=== PATIENT | female | born 2000 | race Caucasian/White ===

== ENCOUNTER 2019-04-20 23:44 | Emergency (ER) | payer OTHER ==
[~2019-04-20] VITALS: Ht 165.1 cm; Wt 139.7 kg
[~2019-04-20 23:44] MED LIST: CYCL10TA7 PO; NAPR-985 PO
[2019-04-20 23:47] VITALS: BP 141/102; PULSE 100; RESP 17; Ht 165.1 cm; Wt 139.7 kg
[2019-04-21] MEDS ORDERED: KETOROLAC 30 MG INJ IM STA (00:12)
[2019-04-21] MEDS ORDERED: DEXAMETHASONE 10 MG/ML 1 ML INJ IM ONE (00:30)
[2019-04-21] MEDS ORDERED: ONDANSETRON (ODT) 4 MG TAB ODT STA (01:33)
[2019-04-21] MEDS ORDERED: HYDROCODONE/APAP (10/325) TAB PO ONE (02:00)
--- NOTE | 2019-04-21 17:08 | ERD ---
ER Documentation Chief Complaint Chief Complaint low back pain that radiates to neck started last sunday. HPI Is this patient is a 18-year-old female resenting to the emergency department complaining of low back pain with radiation down her legs bilaterally. Symptoms have been intermittent for the past 4 days. She denies any significant lifting, bending, or other injury to the back. She has history of similar symptoms in the past. She took [id number] medication without significant relief. She denies any loss of bowel or bladder function, fevers, abdominal pain, lower extremity weakness, saddle anesthesia, or other symptoms at this time. ROS All systems reviewed and are negative except as per history of present illness. Medications Home Meds Active Scripts Naproxen* (Naprosyn*) 500 Mg Tablet, 500 MG PO BID PRN for PAIN AND/OR INFLAMMATION, #30 TAB Prov:RAÚL MANDUJANO PA-C 04/21/19 Cyclobenzaprine Hcl* (Cyclobenzaprine Hcl*) 10 Mg Tablet, 10 MG PO TID, #15 TAB Prov:RAÚL MANDUJANO PA-C 04/21/19 Allergies Allergies: Coded Allergies: amoxicillin (Verified Allergy, Intermediate, Rashes,dizziness,nausea,diarrhea., 04/20/19) PMhx/Soc Medical and Surgical Hx: pt denies Medical Hx (Seen patient nausea which is why she really got Ativan will) History of Surgery: No Hx Neurological Disorder: No Hx Respiratory Disorders: No Hx Cardiac Disorders: No Hx Miscellaneous Medical Probl: No Hx Alcohol Use: No Hx Substance Use: No Hx Tobacco Use: No FmHx Family History: No diabetes Physical Exam Vitals Vital Signs Date Temp Pulse Resp B/P (MAP) Pulse Ox O2 O2 Flow FiO2 Time Delivery Rate 04/20/19 98.1 100 17 141/102 99 23:47 (115) Physical Exam Const: No acute distress Head: Atraumatic Eyes: Normal Conjunctiva ENT: Normal External Ears, Nose and Mouth. Neck: Full range of motion. No meningismus. Resp: Clear to auscultation bilaterally Cardio: Regular rate and rhythm, no murmurs Abd: Soft, non tender, non distended. Normal bowel sounds. No rebound tenderness or guarding. No McBurney's point tenderness. Skin: No petechiae or rashes Back: No midline or flank tenderness. Tenderness palpation of the paraspinal muscles of the lumbar spine bilaterally. Positive straight leg raise on the right. Back Exam: Skin: No bruising or rash Compartments: Soft Motor: Normal flexion and extension of bilateral hip/knee/ankle/foot Sensation: Intact to light touch throughout Bones: No midline TTP Ext: No cyanosis, or edema Neur: Awake and alert Psych: Normal Mood and Affect Results 24 hrs Laboratory Tests Test 04/21/19 00:35 04/21/19 00:36 Bedside Urine pH (LAB) 6.0 Bedside Urine Protein (LAB) Negative Bedside Urine Glucose (UA) Negative Bedside Urine Ketones (LAB) Negative Bedside Urine Blood 1+ Bedside Urine Nitrite (LAB) Negative Bedside Urine Leukocyte Esterase (L Negative POC Beta HCG, Qualitative NEGATIVE Current Medications Medications Dose Sig/Krystal Start Time Status Last (Trade) Ordered Route PRN Stop Time Admin Dose Reason Admin Ketorolac 30 mg ONCE STAT 04/21/19 DC 04/21/19 Tromethamine IM 00:12 00:37 (Toradol) 04/21/19 00:13 10 mg ONCE ONCE 04/21/19 DC 04/21/19 Dexamethasone IM 00:30 00:37 (Decadron) 04/21/19 00:31 1 tab ONCE ONCE 04/21/19 DC 04/21/19 Acetaminophen PO 02:00 01:39 / 04/21/19 02:01 Hydrocodone Bitart ([place] (10/325)) Ondansetron 4 mg ONCE STAT 04/21/19 DC 04/21/19 HCl (Zofran ODT 01:33 01:38 Odt) 04/21/19 01:34 Procedures/MDM 18-year-old female presented to the emergency department with signs and symptoms most consistent with low back pain with sciatica. Patient was administered Toradol, Decadron, and [place] in the department and her pain improved. No evidence of urinary tract infection on urine dip. Urine was negative. Patient's musculoskeletal symptoms have stabilized while they have been evaluated in the department and are appropriate for outpatient work up. No evidence of cauda equina, cord compression, infiltrative, or infectious etiology. Patient's blood pressure was elevated (>120/80) but appears stable without evidence of hypertension emergency or urgency. The patient is to follow-up and pursue outpatient monitoring and therapy with their primary care physician within 1 week and return immediately if they have any new, worsening, or concerning symptoms. Departure Diagnosis: Primary Impression: Low back pain with sciatica Condition: Fair Patient Instructions: Back Pain W/ Sciatica Referrals: COMMUNITY CLINICS YOU HAVE RECEIVED A MEDICAL SCREENING EXAM AND THE RESULTS INDICATE THAT YOU DO NOT HAVE A CONDITION THAT REQUIRES URGENT TREATMENT IN THE EMERGENCY DEPARTMENT. FURTHER EVALUATION AND TREATMENT OF YOUR CONDITION CAN WAIT UNTIL YOU ARE SEEN IN YOUR DOCTORS OFFICE WITHIN THE NEXT 1-2 DAYS. IT IS YOUR RESPONSIBILITY TO MAKE AN APPOINTMENT FOR FOLOW-UP CARE. IF YOU HAVE A PRIMARY DOCTOR --you should call your primary doctor and schedule an appointment IF YOU DO NOT HAVE A PRIMARY DOCTOR YOU CAN CALL OUR PHYSICIAN REFERRAL HOTLINE AT IF YOU CAN NOT AFFORD TO SEE A PHYSICIAN YOU CAN CHOSE FROM THE FOLLOWING [facility] [address] [facility]. [facility] [address] [facility] [facility] [address] [facility] [address] [facility]. [facility] [address] [facility]. [facility] [address] Additional Instructions: Call your primary care doctor TOMORROW for an appointment during the next 1-2 days.See the doctor sooner or return here if your condition worsens before your appointment time. RAÚL MANDUJANO PA-C Apr 21, 2019 17:08
== END 2019-04-21 02:00 | disposition home or self-care (01) ==
LOC: FTE 23:44
DX: M54.40 Lumbago with sciatica, unspecified side (principal)
CPT/HCPCS: 81003; 81025; 96372; J1100; J1885; Z7502; Z7610